=== PATIENT | male | born 1985 | race Two or more races ===

== ENCOUNTER 2016-08-28 05:10 | Emergency (ER) | payer SELFPAY ==
--- NOTE | 2016-08-28 05:25 | ED Physician Chart ---
Chief Complaint/HPI - Patient Information Date Seen:: 08/28/16 Time Seen:: 05:15 Chief Complaint:: alcohol intoxication History of Present Illness:: 31-year-old male brought in by EMS with acute moderate, alcohol intoxication which was discovered about 30 minutes prior to the ER. Has associated drunk in public and sleeping in public. Patient was sleeping in a public place after a night of drinking in a bar. Says he was walking home and decided to go to sleep. Denies numbness, tingling, headache, chest pain or palpitations, nausea , vomiting, abdominal pain. Historian:: Patient, EMS Review:: Nurse's Note Reviewed, EMS run form Reviewed Review of Systems - Review of Systems Other: Complete system review otherwise unremarkable except as noted in history of present illness. Past Medical History - Past Medical History Past Medical History: No significant medical hx Family History: None Social History: Non Smoker, Alcohol, No Drug Use Surgical History: None Psychiatricy History: None Medication: None Family Medical History - Family Member Mother History Unknown: Yes Ethnicity: Physical Exam - Physical Examination Other:: INITIAL VITAL SIGNS: Reviewed by me GENERAL: Alert and interactive. No acute distress HEAD: Head is normocephalic and atraumatic EYES: EOMI. PERRL. No scleral icterus. No conjunctival injection ENT: Moist mucous membranes. NECK: Supple. No masses. Full range of motion RESPIRATORY: No tachypnea. Clear breath sounds bilaterally. No wheezing, rales, or rhonchi CV: Regular rate and rhythm. No murmurs, rubs, or gallops ABDOMEN: Soft, non-distended, non-tender. No guarding. No rebound. No masses. EXTREMITIES: No deformity. No cyanosis. No edema. SKIN: Warm and dry. No obvious rashes. NEUROLOGIC: Alert and oriented. Face is symmetric. Speech is normal. Moves all extremities equally. Motor and sensory distally intact. ED Septic Shock - . Is Septic Shock (SBP<90, OR Lactate>4 mmol\L) present?: No Reassessment (Disposition) - Reassessment Reassessment:: Patient arrived by ambulance. Apparently system called police because he was sleeping in public. Patient is alert and oriented 4. He is walking to and from the restroom without any gait abnormalities. He was advised to follow-up with her primary care physician within one to 2 days. Return to ER precautions are given. Patient says he understands and agrees with the plan. Reassessment Condition:: Improved - Diagnosis Diagnosis:: Acute alcohol intoxication - Aftercare/Follow up Instructions Aftercare/Follow-Up Instructions:: Counseled pt regarding lab results/diagnosis & need follow up, Refer to Discharge Instructions - Patient Disposition Discharge/Transfer:: Home Time:: 05:41 Condition at Disposition:: Improved ED Discharge Plan - Patient Disposition Admit/Discharge/Transfer: PT DISCHARGED HOME Condition at Disposition: Improved Instructions: Alcohol Intoxication, [id number]
== END 2016-08-28 05:41 | disposition home or self-care (01) ==
LOC: ER 05:10
DX: F10.129 Alcohol abuse with intoxication, unspecified (principal)
CPT/HCPCS: Z7502